=== PATIENT | female | born 1995 | race Caucasian/White ===

== ENCOUNTER 2020-07-22 06:46 | Emergency (ER) | payer OTHER ==
[~2020-07-22] VITALS: Ht 154.9 cm; Wt 49.0 kg
== END 2020-07-22 13:50 | disposition home or self-care (01) ==
LOC: ER 06:46
DX: R11.11 Vomiting without nausea (principal); R10.84 Generalized abdominal pain

== ENCOUNTER 2020-12-02 02:45 | Emergency (ER) | payer OTHER ==
[~2020-12-02] VITALS: Ht 162.6 cm; Wt 56.7 kg
[2020-12-02] MEDS ORDERED: CARAFATE1 GM PO (07:32)
[2020-12-02] MEDS ORDERED: ONDANSETRON HCL4 MG PO (07:32)
[2020-12-02] MEDS ORDERED: PEPCID AC20 MG PO (07:32)
== END 2020-12-02 07:42 | disposition home or self-care (01) ==
LOC: ER 02:45
DX: K29.20 Alcoholic gastritis without bleeding (principal); F10.129 Alcohol abuse with intoxication, unspecified; Y90.9 Presence of alcohol in blood, level not specified

== ENCOUNTER 2023-05-30 14:17 | Emergency (ER) | payer OTHER ==
[~2023-05-30] VITALS: Ht 160 cm; Wt 54.4 kg
[~2023-05-30 14:17] MED LIST: ACETAMINOPHEN650 M2; CARAFATE1 GM PO; ONDANSETRON HCL4 MG PO; PEPCID AC20 MG PO
[2023-05-30] MEDS ORDERED: 0.9 % SODIUM CHLORIDE 1,000 ML IV STA (14:49)
[2023-05-30] MEDS ORDERED: FAMOTIDINE/PF 20 MG in 0.9 % SODIUM CHLORIDE 8 ML IV PUSH STA (14:49)
[2023-05-30] MEDS ORDERED: ONDANSETRON HCL 2 MG/ML VIAL IV STA (14:49)
[2023-05-30 15:32] LABS: HEMATOCRIT 37.5 % (36.0-45.00); HEMOGLOBIN 12.6 g/dL (12.0-15.00); MEAN CELL VOLUME 81.9 fL (80.00-100.00); MEAN CORPUSCULAR HEMOGLOBIN 27.5 pg (27.00-32.0); MEAN CORPUSCULAR HGB CONC 33.6 g/dl (32.0-36.0); PLATELET COUNT 277 K/uL (150-450); RED BLOOD COUNT 4.57 M/uL (4.00-6.00); RED CELL DISTRIBUTION WIDTH 14.5 % (11.5-14.5)
[2023-05-30 15:53] LABS: CALCIUM 9.2 mg/dL (8.5-10.1); CREATININE SERUM 0.96 mg/dL (0.55-1.02); GFR 69.2; POTASSIUM 3.59 mEq/L (3.5-5.1)
[2023-05-30] MEDS ORDERED: PROMETHAZINE HCL 25 MG/ML AMPUL IM ONE (16:45)
[2023-05-30] MEDS ORDERED: SUCRALFATE 1 G TABLET PO ONE (18:30)
[2023-05-30] MEDS ORDERED: FAMOTIDINE/PF 20 MG/2 ML VIAL IV ONE (19:15)
[2023-05-30] MEDS ORDERED: MORPHINE SULFATE 2 MG/ML CARTRIDGE IV ONE (19:15)
[2023-05-30] MEDS ORDERED: ONDANSETRON HCL 2 MG/ML VIAL IV ONE (19:15)
[2023-05-30] MEDS ORDERED: DEXTROSE 5 % IN WATER 500 ML IV SCH (19:15)
[2023-05-30] MEDS ORDERED: THIAMINE HCL 100 MG/ML 2 ML VIAL IV ONE (19:15)
[2023-05-30] MEDS ORDERED: ZOFRAN8 MG PO (20:15)
[2023-05-30] MEDS ORDERED: PEPCID20 MG PO (20:15)
== END 2023-05-30 21:05 | disposition home or self-care (01) ==
LOC: ER 14:17
PROVIDERS: Emergency Medicine
DX: E86.0 Dehydration (principal); K29.70 Gastritis, unspecified, without bleeding; F10.129 Alcohol abuse with intoxication, unspecified; R10.9 Unspecified abdominal pain